=== PATIENT | male | born 1950 | race Caucasian/White ===

== ENCOUNTER 2019-03-16 09:10 | Inpatient (IN) ==
[~2019-03-16 09:10] MED LIST: BUPivacaine Liposome/PF (Exparel) Inj 20ml vial INFIL ONE; Ketorolac Inj 30 MG, Morphine Inj (Ortho Cocktail) 4 MG, BUPivacaine Inj 0.25% PF 150 MG SPLASH ONE; LIDOCAINE W/ SODIUM BICARB 0.5 ML SYR SUBD ONE; Nasal Sanitizer POPSWAB ampule 3 AMP (Nozin) PREOP DOSE ENOS SCH; Tranexamic Acid 1,000 MG in Sodium Chloride 0.9% 100 ML IV SCH; ceFAZolin Inj 2gm (Premix) 2 GM/50 ML BAG IV ONE
[2019-03-16] MEDS ORDERED: ceFAZolin 1 GM VIAL IVP ONE (09:31)
[2019-03-16] MEDS ORDERED: Lactated Ringers 1,000 ML PRIMARY IV ONE ×2 (09:32→14:06)
[2019-03-16] MEDS ORDERED: LIDOCAINE W/ SODIUM BICARB 0.5 ML SYR ONE (09:32)
[2019-03-16] MEDS ORDERED: fentaNYL Inj 100 MCG/2 ML VIAL ONE (09:36)
[2019-03-16] MEDS ORDERED: MIDAZOLAM 5 MG/1 ML ONE (09:36)
[2019-03-16] MEDS ORDERED: ceFAZolin Inj 3 GM in Sodium Chloride 0.9% 100 ML IV ONE (09:45)
[2019-03-16 09:51] LABS: BILIRUBIN,URINE NEGATIVE (NEG); CLARITY,URINE CLEAR (CLEAR); COLOR,URINE YELLOW (Y); GLUCOSE, URINE (UA) NEGATIVE (NEG); OCCULT BLOOD,URINE NEGATIVE (NEG); PROTEIN,URINE TRACE mg/dl (NEG); UROBILINOGEN,URINE 0.2 EU/dL (0.2)
[2019-03-16 09:54] LABS: URINE SAMPLE TYPE CLEAN CATCH URINE
[2019-03-16] MEDS: Lactated Ringers 1,000 ML PRIMARY IV SCH ×2 (10:00→17:34)
[2019-03-16] MEDS ORDERED: DEXAMETHASONE PF 10 MG/1 ML VIAL ONE (10:51)
[2019-03-16] MEDS ORDERED: BUPivacaine Liposome/PF (Exparel) Inj 20ml vial INFIL ONE (10:56)
[2019-03-16] MEDS ORDERED: BACITRACIN 50,000 UNIT VIAL IRRIG ONE (10:56)
[2019-03-16] MEDS ORDERED: Sodium Chloride 0.9% vial 60 ML ONE (10:56)
[2019-03-16] MEDS ORDERED: Ketorolac Inj 30 MG, Morphine Inj (Ortho Cocktail) 4 MG, BUPivacaine Inj 0.25% PF 150 MG SPLASH ONE ×3 (11:00)
[2019-03-16] MEDS ORDERED: Ropivacaine 0.2% VIAL 20 ML ONE (11:35)
[2019-03-16] MEDS ORDERED: MORPHINE SULFATE/PF 10 MG/10 ML AMPULE ONE (11:36)
[2019-03-16] MEDS ORDERED: EPINEPHrine Inj (1:1,000) 1 mg/ml amp ONE (11:36)
[2019-03-16] MEDS ORDERED: LIDOCAINE HCL 2 % 10 ML JELLY URO-JECT TOPICAL ONE (12:21)
[2019-03-16] MEDS ORDERED: LIDOCAINE HCL 2 % 10 ML JELLY URO-JECT TOPICAL PRN (12:38)
[2019-03-16] MEDS ORDERED: ePHEDrine Inj 50 MG/ML AMP ONE ×2 (12:50)
[2019-03-16] MEDS ORDERED: TRANEXAMIC ACID 1,000 MG / 10 ML VIAL ONE (12:51)
--- NOTE | 2019-03-16 14:14 | CRNA.PROCE ---
Nerve Block Documentation - - Safety Measures: Time Out Taken, Site Verified - - Type of Nerve Block Used: Right Adductor Canal Nerve Block Position for Nerve Block: Supine Moniters Used During Block: EKG, SPO2, NIBP Oxygen Supplemented: Yes Sedation Used - Enter Amount in Comment Field [ANES.SEDAT]: Midazolam (mg): Yes (3 plus 2), Fentanyl (mcg): Yes (50 plus 50) Skin Prep Used: ChloroPrep (Twice) Draped: No Technique: Ultrasound Nerve Block Needle Used: EchoBright 100 mm Local Anesthetic - Enter Amt in Comment Field [ANES.LOCNB]: 0.5 % Bupivicaine with Epinephrine 1:200,000 (mL): Yes (15), 0.2 % Ropivacaine (mL): Yes (15) Additives to Nerve Blocks: Dexamethasone (mg): Yes (10) - - PreOp Block : Time In: 11:45 PreOp Block : Time Out: 12:15 Anesthesia Time - Other Weight: 121.2 kg Height: 5 ft 10 in Body Mass Index (BMI): 38.3
--- NOTE | 2019-03-16 14:18 | CRNA.PROCE ---
Central Neuraxis Block Placemt - - Safety Measures: Time Out Taken, Site Verified - - Type of Block: Subarachnoid Reason for Block: Surgical Moniters Used During Block: EKG, SPO2, NIBP Positioning: Sitting Skin Prep Used: ChloroPrep Draped: Yes Skin Infiltration - Enter Amount Used in Comment Field: 1% Xylocaine (mL): Yes (2.0) Introducer User: None Spinal Needle Used: 22 Akira 80 mm (1 dural punture) Local Anesthetic - Enter Amount Used in Comment Field: 0.75 % Bupivacaine with Dextrose (ml): Yes (2 ml) Additive Used - Enter Amount Used in Comment Field: Preservative Free Morphine (mg): Yes (.15), Epinephrine 1:1000 Needle Rinse (mL): Yes (yes) - - Additional Details: right lateral decubiti position times 20 min prior to OR. Anesthesia Time - Block Time PreOp Block : Time In: 11:45 PreOp Block : Time Out: 12:15 - Other Weight: 121.2 kg Height: 5 ft 10 in Body Mass Index (BMI): 38.3
--- NOTE | 2019-03-16 14:18 | CRNA.PROGR ---
Anesthesia Time - Procedure/Recovery Time Start Date: 03/16/19 (T) End Date: 03/16/19 Anesthesia : Time In: 12:33 Anesthesia : Time Out: 16:15 Anesthesia : Total Time: 222 - Block Time Start Date: 03/16/19 End Date: 03/16/19 PreOp Block : Time In: 11:45 PreOp Block : Time Out: 12:15 PreOp Block : Total Time: 30 - Total Anesthesia Time Total Anesthesia Time (minutes): 252 - Other Weight: 121.2 kg Height: 5 ft 10 in Body Mass Index (BMI): 38.3 Physical Status: P2 Anesthesia Type: Spinal Block
[2019-03-16] MEDS ORDERED: diphenhydrAMINE 25 MG CAPSULE PO PRN (15:50)
[2019-03-16] MEDS ORDERED: BISACODYL 5 MG TABLET PO PRN (15:50)
[2019-03-16] MEDS ORDERED: MAG HYDROX/AL HYDROX/SIMETH 30 ML SUSP PO PRN (15:50)
[2019-03-16] MEDS ORDERED: CALCIUM CARBONATE 500 MG (TUMS) CHEWABLE TABLET PO PRN (15:50)
[2019-03-16] MEDS ORDERED: Prochlorperazine Tab 10 MG TAB PO PRN (15:50)
[2019-03-16] MEDS ORDERED: MORPHINE SULFATE 2 MG/1 ML IVP PRN (15:50)
[2019-03-16] MEDS ORDERED: ACETAMINOPHEN 325 MG TABLET PO PRN (15:50)
[2019-03-16] MEDS ORDERED: BISACODYL 10 MG SUPPOSITORY RECTAL PRN (15:50)
[2019-03-16] MEDS ORDERED: Ondansetron ODT Tab 8 MG TAB PO PRN (15:50)
[2019-03-16] MEDS ORDERED: ONDANSETRON 4 MG/2 ML VIAL IVP PRN (15:50)
--- NOTE | 2019-03-16 15:50 | ORTHO.OP ---
Surgery Date: 03/16/19 Preoperative Diagnosis: Severe osteoarthritis right knee Postoperative Diagnosis: Same Procedure: Right total knee arthroplasty using the Devan persona knee system with medial congruent tray Surgeon: Shanel Perez MD Pharmacy Assistant: JET Miles Anesthesia Provider: Carie Freire CRNA Anesthesia Type: Regional Fluids: 1800 mL crystalloid. Complications: None. Tourniquet time 2 hours 10 minutes. Operative Summary: taken to recovery room in stable condition.
[2019-03-16] MEDS: D5-1/2NS + 20mEq KCL 1,000 ML PRIMARY IV SCH (17:21)
--- NOTE | 2019-03-16 17:45 | DI ---
XR KNEE 1 OR 2 VWS 03/16/2019 4:00 PM HISTORY: [facility] [place] DI ^status post right total knee. Comparison: 01/29/2019. Findings/Impression: Portable AP and crosstable lateral views of the right knee are submitted. The pa tient is status post total knee arthroplasty. There is no evidence of hardware fracture or loosening. Lucency extends proximally in the femoral metadiaphysis; correlate with desired surgical outcome. Th ere is no acute fracture or dislocation. A lucent lesion in the proximal fibula has not significantly changed from comparison imaging. A drain projects over the suprapatellar joint space. There is fluid and gas in the anterior soft tissues and knee joint, an expected finding in the immediate postoperat gloria timeframe. Surgical ting are present in the anterior soft tissues. The remainder of the exam i s unchanged.
[2019-03-16] MEDS: ceFAZolin Inj 2gm (Premix) 2 GM/50 ML BAG IV SCH (21:16)
[2019-03-16] MEDS: DOCUSATE 100 MG CAPSULE PO SCH (21:17)
[2019-03-16] MEDS: oxyCODONE/APAP 7.5/325 Tab 1 TAB TAB PO PRN (21:17)
[2019-03-17] MEDS: oxyCODONE/APAP 7.5/325 Tab 1 TAB TAB PO PRN ×4 (02:21→20:25)
[2019-03-17] MEDS: ceFAZolin Inj 2gm (Premix) 2 GM/50 ML BAG IV SCH (04:58)
[2019-03-17] MEDS: D5-1/2NS + 20mEq KCL 1,000 ML PRIMARY IV SCH (05:00)
[2019-03-17 06:05] LABS: Hematocrit [HCT] 39.2 % (42.0-52.0); Hemoglobin [HGB] 12.9 g/dL (14.0-18.0); MEAN CORPUSCULAR HEMOGLOBIN 33.7 PG (27-31); MEAN CORPUSCULAR HGB CONC 32.9 g/dL (33-37); MEAN CORPUSCULAR VOLUME 102.3 FL (80-90); MEAN PLATELET VOLUME 10.4 FL (7.4-12.2); RED BLOOD COUNT 3.83 10^6/uL (4.70-6.10)
[2019-03-17 06:34] LABS: BLOOD UREA NITROGEN 22 mg/dL (7-22)
[2019-03-17] MEDS: DOCUSATE 100 MG CAPSULE PO SCH ×2 (08:32→20:25)
--- NOTE | 2019-03-17 08:41 | ORTHO.PROG ---
Last Taken Vital Signs: Vital Signs - Last Taken Temperature 98.5 F 03/17/19 06:48 Pulse Rate 90 03/17/19 06:48 Respiratory Rate 20 03/17/19 06:48 Blood Pressure 122/78 03/17/19 06:48 Pulse Ox 94 03/17/19 06:48 Subjective: Patient sitting up in bed. Not reporting any pain. Feels fantastic. Connor catheter was placed last night. Objective: Vital signs stable patient afebrile. Approximately 480 mL of drainage out of his Hemovac. Hemoglobin and hematocrit 12.9 and 39. Right knee incision clean and dry. No effusion. Dry dressing applied followed by ARCHANA beebe. He is able to lift his leg without any difficulty. Assessment: Impression: Doing excellent postop day 1 following total knee. Plan: Plan is to initiate physical therapy. Put him on baby aspirin twice a day. Probable discharge by Friday.
[2019-03-17] MEDS: ASPIRIN 81 MG (BABY) CHEWABLE TABLET PO SCH ×2 (09:23→20:26)
--- NOTE | 2019-03-17 09:51 | CRNA.PROGR ---
Anesthesia Note - Progress Notes Anesthesia Progress Note: Up and about with assistance. Urinary catheter is out. No nausea. Minimal itch. Pain well controlled. Very pleased with post anesthetic/post operative course so far. No apparent anesthetic difficulties. Vital Signs - Last Taken Temperature 98.5 F 03/17/19 06:48 Pulse Rate 90 03/17/19 06:48 Respiratory Rate 20 03/17/19 06:48 Blood Pressure 122/78 03/17/19 06:48 Pulse Ox 94 03/17/19 06:48
--- NOTE | 2019-03-17 14:37 | PTI REPORT ---
Thank you for the referral of Konrad Daniels. He was seen on 03/17/19 for an inpatient evaluation status post total knee arthroplasty. SUBJECTIVE: The patient is a 68-year-old male. The patient reports that he lives in [place] and is going to go stay with his son who also lives in [place]. The patient reports there are three stairs with a handrail into the home. The patient reports his pain is very minimal and he would like to get out of bed. The patient was previously independent with ADLs. PAST MEDICAL HISTORY: Past medical history can be found in the patient's medical record. OBJECTIVE FINDINGS: General observations: Nursing okayed treatment prior to PT. Bed mobility: The patient required stand by assist for supine to sit transfer to edge of bed. Transfers: The patient required contact guard assist x2 for sit to stand transfer using walker. The patient was issued a walker and it was adjusted for height. The patient was instructed in stand to sit transfer to his recliner with contact guard assist x1. Ambulation: The patient was instructed to ambulate approximately 30 feet with contact guard assist x1 with cues to decrease walking speed for safety. ASSESSMENT: The patient is a 68-year-old male that presents status post total knee. The patient would benefit from skilled therapy in order to improve functional mobility to return to prior level of function. Problem List: Decreased strength Decreased functional mobility Short-Term Goals: To be met by discharge from inpatient: Patient will be independent with all transfers. Patient will be able to ambulate 150 feet with walker. Patient will be able to ascend and descend three stairs with walker independently. Long-Term Goals: To be met following discharge from inpatient: Patient will benefit from outpatient physical therapy. TREATMENT PLAN: Patient will be seen B.I.D during the week and one time per day over the weekend as an inpatient for therapeutic exercise, functional activity, neuromuscular reeducation, gait training, manual therapy, and modalities as needed. INITIAL TREATMENT: Treatment today consisted of the initial evaluation followed by the patient being instructed to ambulate x30 feet with walker and contact guard assist x1. The patient was transferred to his chair with contact guard assist x1 and was left in chair with chair alarm activated and call light within reach. The patient was educated to perform ankle pumps while sitting in chair. DARRYL
--- NOTE | 2019-03-17 16:19 | PT.PROG ---
Progress Note Progress Note: S. Patient stated that he is feeling good this afternoon. He agreed to go to the therapy gym. O. Patient ambulated 175 feet to the therapy gym where he had heat to the back of his knee then performed, heel slides, quad sets, ankle pumps, short arc quads, straight leg raises all x 10, seated long arc quads, sit to stands and box step ups (#2 box) x 10. Patient used the nu-step x 5 minutes and then ambulated 175 feet back to her room where he was left in bed with alarm and call light. CPM set at -2 to 95, and Ice was placed on his knee. A. Patient tolerated therapy well, he struggled with heel slides, he was able to complete all exercises independently. Patient was able to achieve 92 degrees of flexion this afternoon. He would continue to benefit from skilled therapy to increase strength, endurance and safety. P. Continue POC.
[2019-03-18] MEDS: oxyCODONE/APAP 7.5/325 Tab 1 TAB TAB PO PRN ×6 (00:39→20:23)
[2019-03-18 05:42] LABS: Hematocrit [HCT] 37.9 % (42.0-52.0); Hemoglobin [HGB] 12.3 g/dL (14.0-18.0); MEAN CORPUSCULAR HEMOGLOBIN 33.8 PG (27-31); MEAN CORPUSCULAR HGB CONC 32.5 g/dL (33-37); MEAN CORPUSCULAR VOLUME 104.1 FL (80-90); MEAN PLATELET VOLUME 10.6 FL (7.4-12.2); RED BLOOD COUNT 3.64 10^6/uL (4.70-6.10)
[2019-03-18 06:00] LABS: BLOOD UREA NITROGEN 23 mg/dL (7-22); BUN/CREATININE RATIO 28.75 (6-20)
[2019-03-18] MEDS: ASPIRIN 81 MG (BABY) CHEWABLE TABLET PO SCH ×2 (08:00→20:23)
[2019-03-18] MEDS: DOCUSATE 100 MG CAPSULE PO SCH ×2 (08:00→20:23)
--- NOTE | 2019-03-18 09:53 | OTI REPORT ---
Thank you for the referral of Konrad Daniels. He was seen on 03/17/19 for an occupational therapy inpatient evaluation status post right total knee arthroplasty. SUBJECTIVE: The patient is a 68-year-old male from [place], [place]. The patient [place] out of town in a one level home with three stairs to get into the home with a railing. The patient reports that he has a regular toilet within his bathroom with grab bars by the toilet and in the shower. He states he already has a shower chair with a back at home. At prior level of function the patient was independent with all ADLs and functional mobility without the use of assistive devices. 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 The patient reports minimal pain; however, his primary concern at this time is some stiffness in the right knee. The patient reports that he would like to get dressed this afternoon. PAST MEDICAL HISTORY: Past medical history can be found in the patient's medical record. OBJECTIVE FINDINGS: Range of motion: The patient demonstrated upper extremity range of motion within functional limits for the shoulder, elbow, hand, and wrist bilaterally. Strength: The patient demonstrated 5/5 manual muscle grade strength bilaterally in the shoulder, elbow, hand, and wrist. Activities of daily living: The patient demonstrated the ability to complete lower extremity dressing tasks to include donning his undergarments and shorts with contact guard assist for safety with set up assistance while sitting in the recliner chair. He was able to thread his lower extremities through the openings in his shorts. The patient completed donning and doffing of socks with a digital media manager and sock aide as he is not able to bend over with verbal cues only. The patient demonstrated the ability to don his t-shirt without difficulty. The patient was issued a digital media manager, sock aide, bath sponge, and a shoe horn to assist with ADL task completion and safety upon return to home. Transfers: The patient completed a functional sit to stand transfer from the recliner chair with gait belt in place and contact guard assist for safety. Ambulation: The patient ambulated with physical therapy without difficulty. ASSESSMENT: Rehab potential is good. Problem List: Decreased ability to complete lower extremity dressing tasks Occupational Therapy Goals: To be met by discharge from inpatient: Patient will demonstrate the ability to complete all lower extremity dressing tasks with modified independence with use of adaptive equipment. Patient will stand at the sink to complete standing grooming tasks x5 minutes with no losses of balance with stand by assistance only. Patient will demonstrate the ability to complete a toileting task with stand by assistance for transfer, clothing management, and toilet hygiene. TREATMENT PLAN: Patient will be seen for one more occupational therapy session to ensure safety and ADL task independence. INITIAL TREATMENT: Treatment today consisted of the occupational therapy initial evaluation only. DARRYL
--- NOTE | 2019-03-18 12:07 | PT.PROG ---
Progress Note Progress Note: S. Patient stated that he is feeling good this morning. O. Patient ambulated 175 feet to the therapy gym where he had heat to his knee, Patient then performed exercises in the form of; heel slides, quad sets, glute sets, ankle pumps, short arc quads, heel toe raises, hip abduction/adduction, straight leg raises, seated long arc quads, marches, ball squeezes, clam shells, resisted knee flexion, heel toe raises, all x 10 Patient then performed sit to stands x 10 Patient performed box step ups x 10 with #3 box, and ascended and descended 5 stairs then ambulated 175 feet to his room and was left with call light and alarm. A. Patient tolerated therapy well, he was able to perform all exercises with no increase in pain or problems. Patient continues to require Stand by guard assist with transfers and ambulation, Patient was able to achieve 85 degrees of flexion. he would continue to benefit from skilled therapy to increase strength, endurance, and safety at this time. P. Continue POC.
--- NOTE | 2019-03-18 13:58 | ORTHO.PROG ---
Last Taken Vital Signs: Vital Signs - Last Taken Temperature 97.9 F 03/18/19 11:34 Pulse Rate 78 03/18/19 11:34 Respiratory Rate 20 03/18/19 11:34 Blood Pressure 162/88 03/18/19 11:34 Pulse Ox 91 03/18/19 11:34 Subjective: Saw patient this morning and his room. Overall doing quite well. A little more sore today. Only took four pain pills in a 24-hour period yesterday. Objective: Vital signs stable patient afebrile. Right knee incision clean and dry. 1+ effusion. Good leg control. Therapist measured 85 of flexion today. Hemoglobin and hematocrit 12 and 37 Assessment: Impression: Stable postop day 2 from right total knee. Patient seems to be doing fairly well. Plan: Plan: We'll continue therapy. I will see the patient in the morning with possible discharge tomorrow or Friday.
--- NOTE | 2019-03-18 16:16 | PT.PROG ---
Progress Note Progress Note: S. Patient stated he is feeling better this afternoon. O. Patient ambulated 175 feet to the therapy gym where he had heat to the back of his knee then performed heel slides, quad sets, ankle pumps, short arc quads, heel toe raises, seated long arc quads, sit to stands, and box step ups(#3 box) all x 10 Patient used the nu-step x 10 minutes and was stretched then ambulated 175 feet back to his room where he was left with alarm and call light. A. Patient tolerated therapy well, he was able to perform all exercises with no increase in pain or problems. Patient was able to achieve 92 degrees of flexion this afternoon. he would continue to benefit from 1-2 more sessions of skilled therapy to increase strength, mobility and safety at this time. P. Continue POC.
--- NOTE | 2019-03-18 16:42 | OT.PROG ---
Progress Note Progress Note: S: pt reported he was doing good. He is having a hard time sleeping in hospital. O: pt was seen in his room and educated on use of A.e sock aid and pipe and boiler covers supervisor. He completed doffing and donning of socks Ind. He completed bathroom transfer Ind. He completed functional transfer entire way downstairs using standard walker. He completed mod A with bed mobility to supine position. A: pt participated well today but could work on bed mobility a little more. P: continue per POC.
[2019-03-19] MEDS: oxyCODONE/APAP 7.5/325 Tab 1 TAB TAB PO PRN ×4 (00:16→14:13)
[2019-03-19 07:37] VITALS: O2SAT 90
[2019-03-19] MEDS: DOCUSATE 100 MG CAPSULE PO SCH (08:18)
[2019-03-19] MEDS: ASPIRIN 81 MG (BABY) CHEWABLE TABLET PO SCH (08:18)
--- NOTE | 2019-03-19 08:47 | ORTHO.PROG ---
Last Taken Vital Signs: Vital Signs - Last Taken Temperature 97 F 03/19/19 07:36 Pulse Rate 82 03/19/19 07:36 Respiratory Rate 18 03/19/19 07:36 Blood Pressure 150/82 03/19/19 07:36 Pulse Ox 90 03/19/19 07:36 Subjective: Patient sitting in bed. Doing well today. Not reporting much pain. States he slept well through the night. Doing well in physical therapy. Objective: Vital signs stable patient afebrile. Right knee incision clean and dry. Swelling no different than yesterday. I was able to flex his knee to about 98 degrees. Assessment: Impression: Stable postop day 3 from right total knee. Plan: Plan: Is to have him do morning physical therapy. I'll check on him around noon and probably discharge him today if he does well.
[2019-03-19 11:20] VITALS: BP 147/93; RESP 20; TEMP 97.6
--- NOTE | 2019-03-19 16:08 | PT.PROG ---
Progress Note Progress Note: S. Patient stated that he is feeling good this morning. O. Patient ambulated 175 feet to the therapy gym where he had heat to his knee, Patient then performed exercises in the form of; heel slides, quad sets, glute sets, ankle pumps, short arc quads, heel toe raises, hip abduction/adduction, straight leg raises, seated long arc quads, marches, ball squeezes, clam shells, resisted knee flexion, heel toe raises, all x 10 Patient then performed sit to stands x 10 Patient ascended and descended 5 stairs then ambulated 175 feet to his room and was left with call light and alarm. A. Patient tolerated therapy well, he was able to perform all exercises with no increase in pain or problems. Patient continues to require Stand by guard assist with transfers and ambulation, Patient was able to achieve 98 degrees of flexion. he would continue to benefit from skilled therapy to increase strength, endurance, and safety at this time. P. Continue POC.
== END 2019-03-19 14:47 | disposition home or self-care (01) | DRG 470 ==
LOC: OPS 09:10 → MED/SURG 16:41
PROVIDERS: ADMIT Orthopaedic Surgery; ATTEND Orthopaedic Surgery